=== PATIENT | male | born 2000 | race American Indian/Alaskan Native ===

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

== ENCOUNTER 2019-06-11 12:53 | Emergency (ER) | payer SELFPAY ==
[2019-06-11 13:31] VITALS: BP 145/87
--- NOTE | 2019-06-11 13:36 | Emergency Department Report ---
- HPI History of Present Illness: 18 y/o male come right eye irriation times 3 days. Denies any pain or blurred vision. States has enrrique eyelashes in the morning. - Exam Vital Signs: Vital Signs 06/11/19 13:30 Temperature 98 F Pulse Rate 81 Respiratory 18 Rate Blood Pressure 145/87 O2 Sat by Pulse 98 Oximetry Physical Exam: AxO times 3 NAD right eye ,mild conjuctiva erythema no discharge. no tenderness. MSE screening note: Focused history and physical exam performed. Due to findings the following was ordered: Follow up with your primary Care provider on Thursday. <REINA DESAI - Last Filed: 06/11/19 13:32> - Exam Vital Signs: Vital Signs 06/11/19 13:30 Temperature 98 F Pulse Rate 81 Respiratory 18 Rate Blood Pressure 145/87 O2 Sat by Pulse 98 Oximetry MSE screening note: Focused history and physical exam performed. Due to findings the following was ordered: <DHEERAJ AQUINO P - Last Filed: 06/11/19 13:46> Chief Complaint: Eye Problems Stated Complaint: POSS PINK EYE RT/SORE THROAT Time Seen by Provider: 06/11/19 13:31 ED Medical Decision Making - Medical Decision Making Attestation: Available for consultation <DHEERAJ AQUINO P - Last Filed: 06/11/19 13:46> ED Disposition for MSE Is pt being admited?: No Does the pt Need Aspirin: No <REINA DESAI - Last Filed: 06/11/19 13:32> Is pt being admited?: No <DHEERAJ AQUINO P - Last Filed: 06/11/19 13:46> Clinical Impression: Irritation of eye Disposition: Z-07 MED SCREENING EXAM-LEFT Condition: Stable Referrals: Your, Primary Care provider. [Other] - 3-5 Days
== END 2019-06-11 13:53 | disposition left against medical advice (07) ==
LOC: ED 12:53
DX: H57.89 Other specified disorders of eye and adnexa (principal)
CPT/HCPCS: 99282